=== PATIENT | female | born 1955 | race African-American/Black ===

== ENCOUNTER 2019-01-11 18:09 | Inpatient (IN) | payer BC, OTHER ==
[~2019-01-11] VITALS: Ht 162.6 cm; Wt 154.2 kg
[~2019-01-11 18:09] MED LIST: COUMADIN; PREVACID
[2019-01-11 19:05] LABS: BASOPHILS % 0.7 % (0.0-2.0); CHLORIDE 108 mEq/L (98-107); D-DIMER < 0.19 mg/L FEU (<0.50); EOSINOPHILS % 2.3 % (0.0-5.0); HEMATOCRIT. 44.6 % (36.0-48.0); HEMOGLOBIN. 15.1 g/dL (12.0-16.0); INR 2.5; LYMPHOCYTES % 33.6 % (20.0-50.0); MEAN CORPUSCULAR HEMOGLOBIN 29.3 pg (28.0-32.0); MEAN CORPUSCULAR VOLUME 86.7 fL (81.0-99.0); MEAN PLATELET VOLUME 7.7 fl (7.4-10.4); MONOCYTES % 7.8 % (2.0-8.0); NEUTROPHILS % 55.6 % (40.0-76.0); PLATELET 347 x1000/uL (130-400); PROTHROMBIN TIME 24.5 sec (9.6-11.0); RED BLOOD CELL COUNT 5.15 mill/uL (4.2-5.4); RED CELL DISTRIBUTION WIDTH 15.2 % (11.6-14.6)
[2019-01-11] MEDS ORDERED: METHYLPREDNISOLONE SOD SUCC 125 MG/2 ML VIAL IV STA (20:42)
[2019-01-11] MEDS ORDERED: ALBUTEROL (0.083%) 2.5MG/3ML NEB HHN STA (20:42)
[2019-01-11] MEDS ORDERED: IPRATROPIUM BROMIDE (0.02%) 0.5MG/2.5ML NEB HHN STA (20:42)
[2019-01-11] MEDS ORDERED: IOHEXOL-350 100 ML BOTTLE ONE (21:48)
[2019-01-12] VITALS (7 sets, daily range): BP systolic 104–156; BP diastolic 62–78
[2019-01-12] MEDS ORDERED: TEMAZEPAM 15MG CAPSULE PO PRN ×2 (01:30→21:00)
[2019-01-12] MEDS ORDERED: WARF10TA44 MT (01:38)
[2019-01-12] MEDS ORDERED: LEVOFLOXACIN 500MG TABLET PO NR (02:00)
[2019-01-12] MEDS: OMEPRAZOLE 20MG CAPSULE EXTENDED RELEASE PO SCH ×2 (06:35→09:02)
[2019-01-12] MEDS ORDERED: LIDOCAINE HCL/PF 1% 2ML VIAL ONE (07:56)
[2019-01-12] MEDS ORDERED: WARFARIN SODIUM 10MG TABLET PO SCH (09:00)
[2019-01-12] MEDS ORDERED: IPRATROPIUM/ALBUTEROL 0.5-3(2.5)MG/3ML NEB HHN SCH (09:00)
[2019-01-12] MEDS: ACETAMINOPHEN 325MG TABLET PO PRN (09:02)
[2019-01-12] MEDS: METHYLPREDNISOLONE SOD SUCC 40 MG/ML VIAL IV SCH ×2 (09:03→21:33)
[2019-01-12] MEDS ORDERED: LACTULOSE 20G/30ML UDC PO SCH (12:00)
[2019-01-12 12:14] LABS: BG BASE EXCESS -3.3 mmol/L (-2.0-2.0); BG FRACTION INSPIRED OXYGEN 21; BG HCO3 ACT 19.8 mmol/L (22.0-26.0); BG METHEMOGLOBIN 0.3 % (0.0-1.5); BG OXYHEMOGLOBIN 96.7 % (94.0-97.0); BG PCO2 30.7 mmHg (35.0-45.0); BG PH 7.428 (7.350-7.450); BG PO2 86.3 mmHg (75.0-100.0); BG SAMPLE SITE RIGHT BRACHIAL; BG TOTAL HEMOGLOBIN 14.3 g/dL (12.0-18.0); BG VENT MODE ROOM AIR
[2019-01-12 12:17] LABS: INR 2.4; PROTHROMBIN TIME 23.6 sec (9.6-11.0)
[2019-01-12] MEDS: IPRATROPIUM/ALBUTEROL 0.5-3(2.5)MG/3ML NEB HHN SCH ×2 (13:30→20:16)
[2019-01-12 14:17] LABS: CHLORIDE 109 mEq/L (98-107)
[2019-01-12 14:18] LABS: HEMATOCRIT 41.5 % (36.0-48.0); HEMOGLOBIN 14.1 g/dL (12.0-16.0); MEAN CORPUSCULAR HEMOGLOBIN 29.8 pg (28.0-32.0); MEAN CORPUSCULAR VOLUME 87.7 fL (81.0-99.0); PLATELET 333 x1000/uL (130-400); RED BLOOD CELL COUNT 4.74 mill/uL (4.2-5.4); RED CELL DISTRIBUTION WIDTH 15.3 % (11.6-14.6)
[2019-01-12] MEDS: WARFARIN SODIUM 10MG TABLET PO SCH (18:08)
[2019-01-12 21:56] LABS: CLARITY URINE CLEAR (CLEAR); COLOR URINE YELLOW (YELLOW); KETONES URINE NEGATIVE (NEGATIVE); LEUKOCYTE ESTERASE URINE NEGATIVE (NEGATIVE); NITRITE URINE NEGATIVE (NEGATIVE); OCCULT BLOOD URINE 1+ (NEGATIVE); PROTEIN URINE NEGATIVE (NEGATIVE); SPECIFIC GRAVITY URINE 1.018 (1.005-1.030); UROBILINOGEN URINE 0.2 E.U./dL (0.2-1.0)
[2019-01-12 22:05] LABS: *AMPHETAMINES SCREEN URINE NEGATIVE (NEGATIVE); *BARBITURATES SCREEN URINE NEGATIVE (NEGATIVE); *COCAINE SCREEN URINE NEGATIVE (NEGATIVE)
[2019-01-12 22:06] LABS: *BENZODIAZEPINES SCREEN URINE NEGATIVE (NEGATIVE); CANNABINOID URINE SCREEN NEGATIVE (NEGATIVE); METHADONE URINE SCREEN NEGATIVE (NEGATIVE); OPIATES URINE SCREEN NEGATIVE (NEGATIVE); PHENCYCLIDINE URINE SCREEN NEGATIVE (NEGATIVE)
[2019-01-13] VITALS: BP 143/74
[2019-01-13] MEDS ORDERED: MAGNESIUM CITRATE 300ML SOLUTION PO NR
[2019-01-13] MEDS: GUAIFENESIN/CODEINE 100-10MG/5ML UDC PO PRN ×3 (01:56→22:10)
[2019-01-13] MEDS: IPRATROPIUM/ALBUTEROL 0.5-3(2.5)MG/3ML NEB HHN SCH ×3 (02:07→21:20)
[2019-01-13 04:00] VITALS: BP 148/72
[2019-01-13 05:52] LABS: HEMATOCRIT 41.1 % (36.0-48.0); HEMOGLOBIN 14.1 g/dL (12.0-16.0); MEAN CORPUSCULAR VOLUME 87.7 fL (81.0-99.0); PLATELET 312 x1000/uL (130-400); RED BLOOD CELL COUNT 4.69 mill/uL (4.2-5.4); RED CELL DISTRIBUTION WIDTH 15.6 % (11.6-14.6)
[2019-01-13 06:23] LABS: CHLORIDE 108 mEq/L (98-107)
[2019-01-13 06:46] LABS: INR 2.2; PROTHROMBIN TIME 22.1 sec (9.6-11.0)
[2019-01-13] MEDS: METHYLPREDNISOLONE SOD SUCC 40 MG/ML VIAL IV SCH (09:52)
[2019-01-13] MEDS: LEVOFLOXACIN 500MG TABLET PO SCH (11:55)
[2019-01-13 12:05] VITALS: BP 139/67
[2019-01-13 16:00] VITALS: BP 148/71
[2019-01-13] MEDS: WARFARIN SODIUM 10MG TABLET PO SCH (18:00)
[2019-01-13 20:00] VITALS: BP 116/65
[2019-01-13] MEDS: FAMOTIDINE 20MG TABLET PO SCH (22:10)
[2019-01-14] VITALS: BP 135/68
[2019-01-14] MEDS: IPRATROPIUM/ALBUTEROL 0.5-3(2.5)MG/3ML NEB HHN SCH ×4 (02:40→20:54)
[2019-01-14 04:00] VITALS: BP 136/66
[2019-01-14 06:55] LABS: HEMATOCRIT 40.9 % (36.0-48.0); HEMOGLOBIN 13.5 g/dL (12.0-16.0); MEAN CORPUSCULAR VOLUME 88.1 fL (81.0-99.0); PLATELET 298 x1000/uL (130-400); RED BLOOD CELL COUNT 4.64 mill/uL (4.2-5.4); RED CELL DISTRIBUTION WIDTH 15.8 % (11.6-14.6)
[2019-01-14 07:00] LABS: CHLORIDE 108 mEq/L (98-107)
[2019-01-14] MEDS: GUAIFENESIN/CODEINE 100-10MG/5ML UDC PO PRN ×2 (07:07→17:32)
[2019-01-14] MEDS: ACETAMINOPHEN 325MG TABLET PO PRN ×2 (07:08→17:29)
[2019-01-14 08:00] VITALS: BP 136/70
[2019-01-14] MEDS: FAMOTIDINE 20MG TABLET PO SCH ×2 (08:17→21:47)
[2019-01-14] MEDS: METHYLPREDNISOLONE SOD SUCC 40 MG/ML VIAL IV SCH (08:18)
[2019-01-14] MEDS: LEVOFLOXACIN 500MG TABLET PO SCH (10:41)
[2019-01-14 11:12] LABS: T4 FREE 1.11 ng/dL (0.76-1.46)
[2019-01-14 12:00] VITALS: BP 149/72
[2019-01-14 14:21] LABS: INR 2.4; PROTHROMBIN TIME 23.5 sec (9.6-11.0)
[2019-01-14 16:00] VITALS: BP 144/76
[2019-01-14] MEDS ORDERED: OMEP20CA5 MT (17:02)
[2019-01-14] MEDS: WARFARIN SODIUM 10MG TABLET PO SCH (17:28)
[2019-01-14] MEDS: NYSTATIN POWDER 15GM TOP SCH (18:53)
[2019-01-14 20:00] VITALS: BP 131/81
[2019-01-14] MEDS ORDERED: MAGNESIUM CITRATE 300ML SOLUTION PO NR (22:00)
[2019-01-15] VITALS (8 sets, daily range): BP systolic 117–152; BP diastolic 53–78
[2019-01-15] MEDS: IPRATROPIUM/ALBUTEROL 0.5-3(2.5)MG/3ML NEB HHN SCH ×4 (00:56→20:41)
[2019-01-15 07:42] LABS: CHLORIDE 106 mEq/L (98-107)
[2019-01-15 07:52] LABS: HEMATOCRIT 38.7 % (36.0-48.0); INR 2.1; MEAN CORPUSCULAR HEMOGLOBIN 29.3 pg (28.0-32.0); MEAN CORPUSCULAR VOLUME 87.4 fL (81.0-99.0); PLATELET 307 x1000/uL (130-400); PROTHROMBIN TIME 21.2 sec (9.6-11.0); RED BLOOD CELL COUNT 4.43 mill/uL (4.2-5.4); RED CELL DISTRIBUTION WIDTH 15.2 % (11.6-14.6)
[2019-01-15] MEDS: NYSTATIN POWDER 15GM TOP SCH ×3 (09:06→17:00)
[2019-01-15] MEDS: METHYLPREDNISOLONE SOD SUCC 40 MG/ML VIAL IV SCH (09:06)
[2019-01-15] MEDS: FAMOTIDINE 20MG TABLET PO SCH (09:06)
[2019-01-15] MEDS: LEVOFLOXACIN 500MG TABLET PO SCH (11:09)
[2019-01-15] MEDS: GUAIFENESIN/CODEINE 100-10MG/5ML UDC PO PRN (11:11)
[2019-01-15] MEDS ORDERED: ONDANSETRON HCL 4MG/2ML INJ IV NR (17:45)
[2019-01-15] MEDS: WARFARIN SODIUM 10MG TABLET PO SCH (17:48)
[2019-01-15] MEDS ORDERED: CLONIDINE 0.1MG TABLET PO PRN (18:00)
[2019-01-15] MEDS ORDERED: ATORVASTATIN CALCIUM 20MG TABLET PO SCH (21:00)
== END 2019-01-15 21:25 | DRG 190 ==
LOC: ER 19:00 → 8WST 20:43 → EDBEDREQ 21:23 → EDBEDREQTM 21:23 → ENRESERV 21:39
PROVIDERS: ADMIT Internal Medicine; ATTEND Internal Medicine
DX: J44.1 Chronic obstructive pulmonary disease with (acute) exacerbation (principal); I50.41 Acute combined systolic (congestive) and diastolic (congestive) heart failure; D68.59 Other primary thrombophilia; E66.2 Morbid (severe) obesity with alveolar hypoventilation; Z68.43 Body mass index [BMI] 50.0-59.9, adult; M51.36 Other intervertebral disc degeneration, lumbar region; M43.16 Spondylolisthesis, lumbar region; M48.061 Spinal stenosis, lumbar region without neurogenic claudication; M47.816 Spondylosis without myelopathy or radiculopathy, lumbar region; E78.00 Pure hypercholesterolemia, unspecified; R32 Unspecified urinary incontinence; M79.601 Pain in right arm; R26.9 Unspecified abnormalities of gait and mobility; E78.5 Hyperlipidemia, unspecified; Z96.659 Presence of unspecified artificial knee joint; G90.8 Other disorders of autonomic nervous system; G89.29 Other chronic pain; K44.9 Diaphragmatic hernia without obstruction or gangrene; R33.9 Retention of urine, unspecified; G62.9 Polyneuropathy, unspecified; Z99.81 Dependence on supplemental oxygen; Z79.01 Long term (current) use of anticoagulants; Z86.711 Personal history of pulmonary embolism; Z88.0 Allergy status to penicillin; Z79.899 Other long term (current) drug therapy
CPT/HCPCS: 36415; 36600; 71045; 71275; 72131; 80048; 80061; 80305; 81003; 82375; 82805; 83036; 83880; 84439; 84443; 84484; 85027; 85379; 87070; 93005; 93306; 93880; 93970; 94640; 96374; 97110; 97116; 97162; 97166; 97530; 97535; 99285; A6261; J2405; J2920; J2930; J3490; J7611; J7620; Q9967